=== PATIENT | female | born 1975 | race Caucasian/White ===

== ENCOUNTER 2016-07-15 09:43 | Day surgery (SDC) | payer OTHER ==
[~2016-07-15] VITALS: Ht 157.5 cm; Wt 70.3 kg
[~2016-07-15 09:43] MED LIST: 0.9% Sodium Chloride 1,000 ML IV SCH; Sodium Chloride LOK Flush 10 mL Syringe IV PRN; fentaNYL-PF 50 mCg/mL 2 mL Inj IVPUSH PRN
[2016-07-15 10:13] VITALS: BP 93/53; PULSE 51; RESP 17; O2SAT 99
[2016-07-15] MEDS ORDERED: MESA800T3 PO (10:13)
[2016-07-15] MEDS ORDERED: fentaNYL-PF 50 mCg/mL 2 mL Inj ONE (10:25)
[2016-07-15] MEDS ORDERED: 0.9% Sodium Chloride 1,000 ML IV ONE (10:51)
[2016-07-15 11:06] VITALS: BP 85/43; PULSE 55; RESP 16; O2SAT 100
[2016-07-15 11:16] VITALS: BP 85/46; PULSE 44; RESP 12; O2SAT 100
--- NOTE | 2016-07-15 11:17 | ENDO ---
[address] [address] ENDOSCOPY PROCEDURE PATIENT: ERIN ALCOCER : 1975 MR#: [id number] ADMIT: 07/15/2016 JOB ID: [id number] DATE OF SERVICE: 07/15/2016 TYPE OF OPERATION: Colonoscopy with biopsy. PREOPERATIVE DIAGNOSIS(ES): History of left-sided ulcerative colitis. POSTOPERATIVE DIAGNOSIS(ES): Very mild erythema in the rectum at 10 cm, status post biopsy from 80 cm to every 10 cm, looking for dysplasia. ANESTHESIA: 1. Fentanyl 125 mcg. 2. Versed 7 mg IV administered. COMPLICATIONS: None. ESTIMATED BLOOD LOSS: Minimal. DESCRIPTION OF PROCEDURE: After risks and benefits explained to the patient, informed consent was obtained. After anesthesia administered, colonoscope was inserted from the rectum to the terminal ileum with mucosa carefully examined. Prep of the patient was excellent. After procedure was done, the scope was withdrawn, and procedure terminated. FINDINGS: Upon inspection of the anus, no masses, hemorrhoids, ulcers, or fissures were seen. Throughout the entire examination, there was very mild erythema seen at 10 cm in the rectum. Biopsies were taken every 10 cm from 80 cm from the cecum looking for dysplasia. Retroflexion was not performed given the fact there was mild erythema in the rectum. IMPRESSION: Very mild erythema in the rectum, status post biopsy. RECOMMENDATIONS: 1. Await pathology results. 2. Repeat colonoscopy in 1-2 years, given her history of ulcerative colitis approximately 15 years from diagnosis, left-sided, for surveillance. 3. Follow up in GI Clinic as needed.
[2016-07-15 11:26] VITALS: BP 85/50; PULSE 44; RESP 14; O2SAT 96
[2016-07-15 11:32] VITALS: BP 92/57; PULSE 40; RESP 14; O2SAT 97
--- NOTE | 2016-07-17 11:07 | PATH ---
SURGICAL PATHOLOGY Attending Physician:Jono Turner MD CASE STATUS: Signed Out PATIENT NAME: ERIN ALCOCER PID: [id number] : 1975 DATE COLLECTED:07/15/2016 22:37 SPECIMEN: 1: Colon, Biopsy 2: Colon, Biopsy 3: Colon, Biopsy 4: Colon, Biopsy 5: Colon, Biopsy 6: Colon, Biopsy 7: Colon, Biopsy 8: Colon, Biopsy CLINICAL HISTORY: 1). BIOPSY AT 80 2). BIOPSY AT 70 3). BIOPSY AT 60 4). BIOPSY AT 50 5). BIOPSY AT 40 6). BIOPSY AT 30 7). BIOPSY AT 20 8). BIOPSY AT 10/ERYTHEMA RECTUM FINAL DIAGNOSIS: 1. 7.COLON BIOPSIES AT 80, 70, 60, 50, 40, 30, AND 20 CM: FRAGMENTS OF ESSENTIALLY NORMAL-APPEARING COLON MUCOSA. Negative for significant architectural distortion. Negative for significant inflammation, dysplasia and malignancy. 8.BIOPSY, RECTUM AT 10 CM: NONSPECIFIC MUCOSAL HYPEREMIA WITH RECENT INTRAMUCOSAL HEMORRHAGE WITHOUT ASSOCIATED SIGNIFICANT INFLAMMATION. Negative for significant architectural distortion. Negative for dysplasia and malignancy. ICD10 Z87.19 NOTE: The results of this evaluation are telephoned to Dr. Jono Turner at 0945 on 07/17/16. GROSS DESCRIPTION: The specimen is received in eight formalin filled containers labeled with the patient's name. 1). The specimen is sublabeled "80 CM" and consists of portions of tissue which aggregate to 0.4 x 0.2 x 0.2 CM. The specimen is entirely submitted in cassette 1A. 2). The specimen is sublabeled "70 CM" and consists of 2 portions of tissue which aggregate to 0.3 x 0.3 x 0.2 CM. The specimen is entirely submitted in cassette 2A. 3). The specimen is sublabeled "60 CM" and consists of 2 portions of tissue which aggregate to 0.3 x 0.3 x 0.2 CM. The specimen is entirely submitted in cassettes 3A. 4). The specimen is sublabeled "50 CM" and consists of 2 portions of tissue which aggregate to 0.4 x 0.3 x 0.2 CM. The specimen is entirely submitted in cassette 4A. 5). The specimen is sublabeled "40 CM" and consists of 2 portions of tissue which aggregate to 0.4 x 0.3 x 0.2 CM. The specimen is entirely submitted in cassette 5A. 6). The specimen is sublabeled "30 CM" and consists of 2 portions of tissue which aggregate to 0.5 x 0.3 x 0.2 CM. The specimen is entirely submitted in cassette 6A. 7). The specimen is sublabeled "20 CM" and consists of 2 portions of tissue which aggregate to 0.3 x 0.3 x 0.2 CM. The specimen is entirely submitted in cassette 7A. 8). The specimen is sublabeled "10 CM erythema rectum" and consists of a 0.3 x 0.2 x 0.2 CM portion of tissue which is entirely submitted in cassette 8A. 07/15/2016 DAC MICRO DESCRIPTION: See diagnosis. ICD-9 CODES: CPT CODES: 1: 27944 2: 18160 3: 09464 4: 71613 5: 19997 6: 72749 7: 77425 8: 80836 Electronically Signed Out Augustine Ibarra MD [facility] [address], [place] [address] Technical component performed at [facility], [facility] [address], [place], [address]
== END 2016-07-15 23:59 | disposition home or self-care (01) ==
LOC: END 09:43
PROVIDERS: ATTEND Internal Medicine Gastroenterology
DX: Z12.11 Encounter for screening for malignant neoplasm of colon (principal); R68.89 Other general symptoms and signs; Z87.19 Personal history of other diseases of the digestive system
CPT/HCPCS: 45380; 99153; G0500; J2250; J3010; J7030